=== PATIENT | female | born 1970 | race Caucasian/White ===

== ENCOUNTER 2017-08-22 12:25 | Emergency (ER) | END 2017-08-22 13:38 | disposition home or self-care (01) | DX: B34.9 Viral infection, unspecified (principal); J45.909 Unspecified asthma, uncomplicated; I10 Essential (primary) hypertension; E78.00 Pure hypercholesterolemia, unspecified; Z88.6 Allergy status to analgesic agent; Z88.5 Allergy status to narcotic agent; Z79.52 Long term (current) use of systemic steroids; Z79.899 Other long term (current) drug therapy; Z87.891 Personal history of nicotine dependence | CPT/HCPCS: 36415; 85025; 87804; 99284; A9270 ==